=== PATIENT | female | born 1990 | race Caucasian/White ===

== ENCOUNTER 2019-03-22 18:51 | Emergency (ER) | payer OTHER ==
[~2019-03-22] VITALS: Ht 167.6 cm; Wt 90.7 kg
--- NOTE | 2019-03-22 19:03 | NUR ---
Dr. Colby at bedside for MSE.
--- NOTE | 2019-03-22 19:10 | NUR ---
Jeb joel in [facility] - 03/22/19 at 1918 by MARY Xray at bedside.
--- NOTE | 2019-03-22 19:18 | NUR ---
Xray at bedside.
--- NOTE | 2019-03-22 19:50 | NUR ---
Patient discharged to home in stable conditon. Written and verbal after care instructions given. Patient verbalizes understanding of instructions. Pt ambulated out of ER with steady gait, no acute signs of distress, VSS, all belongings taken.
[2019-03-22 19:51] VITALS: BP 142/94
== END 2019-03-22 19:53 | disposition home or self-care (01) ==
LOC: ER 18:56
DX: S62.617A Displaced fracture of proximal phalanx of left little finger, initial encounter for closed fracture (principal); Z88.0 Allergy status to penicillin; X58.XXXA Exposure to other specified factors, initial encounter; Y93.67 Activity, basketball; Y92.89 Other specified places as the place of occurrence of the external cause; Y99.8 Other external cause status
CPT/HCPCS: 73140; A4663